=== PATIENT | female | born 1950 | race Caucasian/White ===

== ENCOUNTER 2021-06-07 07:00 | Inpatient (IN) ==
--- NOTE | 2021-05-19 18:40 | History & Physical Report ---
Date of Service May 19, 2021 date of surgery: 06/07/21 Procedure: Left Total Knee Arthroplasty Surgeon: Miguelito Mae Assessment & Plan (1) Arthritis of knee, left: Plan: Risks and benefits of procedure discussed in detail today, patient would like to proceed with a left total knee replacement at [facility] as scheduled. will obtain medical clearance from Dr Bone prior to surgery as well as obtain PATs at [facility]. Will place on ASA 81mg po bid x 1 month post op, f/u 2 weeks post op for routine post-operative care and x-ray, sooner if having any problems. will make arrangements for HHPT at the time of discharge. At this point in time, has failed conservative measures and would like to proceed with surgical intervention. The risks and benefits have been discussed including, but not limited to, risk of infection, nerve injury, stiffness, loss of motion, failure to improve, etc. Reasonable outcomes and options of treatment were discussed. An explanation of appropriate alternatives to the procedure that may be advantageous were dis cussed and their risks and benefits, as well as the risks and benefits of not proceeding with treatment. I offered to answer any additional inquiries concerning the treatment involved. All the patient's questions were answered. The patient is agreeable, understanding of the treatment plan and alternatives, and wishes to proceed with the treatment plan. History of Present Illness Chief Complaint: left knee pain Primary Care Provider: NO PCP Trinh is a 71 year old female who complains of left knee pain, presents for pre-op evaluation prior to a left total knee replacement by Dr Mae at [facility]. she complains of pain, decreased range of motion, instability and stiffness in her left knee. Currently the patient states that the symptoms are moderate- severe and is described as aching, sharp and throbbing. Her symptoms are aggravated by ascending stairs, daily activities, first steps while awake walking. Prior NSAIDs include IBU and Aleve. Other prior treatments include cortisone injection as well as coolief procedure without relief. Allergies Allergy/AdvReac Type Severity Reaction Status Date / Time No Known Allergies Allergy Verified 12/26/20 12:27 Home Medications Medication Instructions Recorded Confirmed Type atorvastatin 20 mg tablet 20 mg PO QPM 12/26/20 12/26/20 History calcium carb-ergocalciferol (vit 2 tab PO QPM 12/26/20 12/26/20 History D2) 600 mg calcium-200 unit tablet losartan 25 mg tablet 25 mg PO QPM 12/26/20 12/26/20 History Past Med/Surg History Medical History HYLTON (dyspnea on exertion) History of bleeding ulcers No recent issues Hyperlipidemia Hypertension Moderate aortic stenosis Per 08/30/20 ECHO Calcified aortic valve with moderate aortic stenosis. SHEY 1.3 cm and mean gradient is 28 mmHg. 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 Beliefs That Will Affect Care: None Current Living Situation: Spouse Feels Safe at Home: Yes Assistive Devices: Glasses Review of Systems Review of Systems: All systems reviewed & are unremarkable except as noted in HPI & below Constitutional: no fever, no chills and no sweats Respiratory: no cough and no dyspnea Cardiovascular: no chest pain, no dyspnea and no orthopnea Gastrointestinal: no abdominal pain, no nausea and no vomiting Musculoskeletal: as per Subjective / HPI Physical Exam Physical Exam: HT: 5ft 4in WT: 107.4kg Constitutional: WD/WN, vitals as above no acute distress Respiratory: normal respiratory effort, lungs clear to auscultation no respiratory distress, no labored breathing and does not use accessory muscles Cardiovascular: RRR, no murmur, no edema Gastrointestinal (Abdomen): normal bowel sounds, soft, nontender, no hepatosplenomegaly Musculoskeletal: Knee: + knee abnormal to inspection (LEFT KNEE- ), + effusion (+1 effusion), + limited ROM of knee (ROM 0/3/110), + knee ROM with crepitation, + joint line tenderness (medial joint line) and + Harmony's sign positive; no deformity, no skin erythema, no ecchymosis, no valgus laxity, no varus laxity, anterior drawer test negative, Romulo's sign negative and pivot shift test negative Results & Data Results & Data ([facility]) Diagnostic Findings Left Knee X-ray: left knee series confirms advanced degenerative changes to the left knee, greatest medial compartments and patellofemoral joint, showing joint space narrowing, osteophyte formation and subchondral sclerosis. no acute bony pathology noted.
--- NOTE | 2021-06-02 13:16 | Anesthesiology Consultation ---
Date of Service June 02, 2021 Assessment & Plan (1) Encounter for pre-operative examination: - awaiting PCP response to previous anesthesia optimization note regarding carotid imaging. - moderate aortic stenosis on 08/2020. 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 Patient vaccinated. Surgeon arranging preop COVID testing, scheduled 06/05/2021. Awaiting results. Chart Review Chart Review: Pending: Refer to Additional Notes / Consult section and Patient NOT seen in Pre Admission Testing History Surgery Operation Date: 06/07/21 10:30 Proposed Procedures p Left Total Knee Arthroplasty - Miguelito Mae DO Height/Weight Height: 5 ft 4 in Weight: 104.326 kg Allergies Allergy/AdvReac Type Severity Reaction Status Date / Time No Known Allergies Allergy Verified 06/02/21 10:50 Medications Home Medications Medication Instructions Recorded Confirmed Last Taken atorvastatin 20 mg tablet 20 mg PO QPM 12/26/20 06/02/21 Unknown calcium carb-ergocalciferol (vit 2 tab PO QPM 12/26/20 06/02/21 Unknown D2) 600 mg calcium-200 unit tablet losartan 25 mg tablet 25 mg PO QPM 12/26/20 06/02/21 Unknown acetaminophen 500 mg tablet 500 mg PO Q6H PRN 06/02/21 06/02/21 Unknown ascorbic acid (vitamin C) 500 mg 500 mg PO QPM 06/02/21 06/02/21 Unknown tablet (Vitamin C) Past Medical History Medical History HYLTON (dyspnea on exertion) History of bleeding ulcers No recent issues History of COVID-19 DX'D END 03/2021 MICHELL JAMISON-BODY ACHES, FATIGUE, LOSS TASTE AND SMELL, SOB-RECOVERED AT HOME-SYMPTOMS RESOLVED Hyperlipidemia Hypertension Moderate aortic stenosis Per 08/30/20 ECHO Calcified aortic valve with moderate aortic stenosis. SHEY 1.3 cm and mean gradient is 28 mmHg. AV peak velocity 2.6 m/s Osteoarthritis Past Family History Family History Sister FHx: lung cancer Mother FHx: breast cancer Other No family history of adverse response to anesthesia Past Surgical History Surgical History History of bunionectomy of left great toe History of cholecystectomy History of colonoscopy History of esophagogastroduodenoscopy (EGD) S/P SEVEN-BSO Social History Smoking Status: Never smoker Do You Dip or Chew Tobacco: No Hx Alcohol Use: Yes Alcohol type: hard liquor alcohol intake frequency: holidays/special occasions only Hx Substance Use: No substance use type: does not use Testing Laboratory Results 05/26/2021 WBC: 4.9 H/H: 11/35 PLATELETS: 214 SODIUM: 139 POTASSIUM: 3.9 CHLORIDE: 109 CO2: 24 BUN: 17 CREATININE: 0.8 GLUCOSE: 92 PT: 14 PTT: 30 INR: 1.1 UA: yellow, clear, negative Electrocardiogram Date: 12/28/20 Sinus bradycardia, rate 56 bpm Chest X-Ray Date: 06/16/20 Stable moderate hiatal hernia Stable moderate cardiomegaly Stable hyperexpansion of lungs No effusion, consolidation or pneumothorax Echocardiogram Date: 08/30/20 EF 55-60% LV wall thickness increased, borderline LVH Mild tricuspid regurgitation Moderate aortic stenosis: valve area 1.3 cm2, mean gradient 28 mmHg Stress Test Date: 10/25/20 pharmacologic MPHR 54% Negative EF 73% Other Testing Carotid duplex 09/20/2016 No evidence of hemodynamically significant stenosis
[~2021-06-07 07:00] MED LIST: ACETAMINOPHEN 500 MG TAB PO SCH; CeleBREX 200 MG CAP PO SCH; FAMOTIDINE 20 MG TAB PO SCH; GABAPENTIN 300 MG CAP PO SCH; LR 15ML/HR IV SCH; METOCLOPRAMIDE HCL 10 MG TABLET PO SCH; ROPIVACAINE 0.5% HCL/PF 150 MG, BUPIVACAINE 0.75% MPF 20 ML, EPINEPHrine 30MG/30ML (OR ... INSTIL SCH; ceFAZolin 2000MG 2,000 MG/15 ML SYR IV SCH; oxyCODONE HCL 10 MG TABCR (OxyCONTIN) PO SCH
[2021-06-07] MEDS ORDERED: fentaNYL citrate 100 MCG/2 ML VIAL ONE (07:35)
[2021-06-07] MEDS ORDERED: MIDAZOLAM HCL 1 MG/ML 2ML VIAL ONE ×2 (07:35→07:36)
[2021-06-07] MEDS ORDERED: BUPIVACAINE 0.5 % 5 MG/1 ML PF 10ML VIAL ONE (07:38)
[2021-06-07] MEDS ORDERED: DEXAMETHASONE SOD INJ 4 MG/ML VIAL ONE (07:38)
[2021-06-07] MEDS ORDERED: EPINEPHrine INJ 1 MG/ML AMP ONE (07:38)
[2021-06-07] MEDS ORDERED: BUPIVACAINE 0.25% 30 ML VIAL ONE (07:39)
--- NOTE | 2021-06-07 08:33 | History & Physical Bridge Note ---
Date of Service June 07, 2021 History & Physical Bridge Note I have examined the patient, reviewed the History & Physical and in the interval since the performance of the History & Physical I have noted the following changes of clinical significance: no changes noted
[2021-06-07] MEDS ORDERED: TRANEXAMIC ACID / 0.7% NACL 1,000 MG/100 ML BAG IV STA ×2 (08:38→08:39)
[2021-06-07] MEDS ORDERED: TRANEXAMIC ACID / 0.7% NACL 1000MG/100ML BAG IV ONE (08:42)
[2021-06-07] MEDS ORDERED: ORTHO JOINT ANESTHETIC ONE (08:57)
[2021-06-07] MEDS ORDERED: ONDANSETRON INJ 2 MG/ML 2 ML VIAL IV PRN ×2 (09:49→12:53)
[2021-06-07] MEDS ORDERED: ATROPINE SULFATE 0.1 MG/ML 10ML SYR IV PRN (09:49)
[2021-06-07] MEDS ORDERED: ePHEDrine sulfate 50 MG/ML AMP IV PRN (09:49)
[2021-06-07] MEDS ORDERED: fentaNYL citrate 100 MCG/2 ML VIAL IV PRN (09:49)
[2021-06-07] MEDS ORDERED: PROPOFOL IV EMULSION 10 MG/ML 20 ML VIAL IV ONE (10:04)
[2021-06-07] MEDS ORDERED: LIDOCAINE 2% 2 ML VIAL/AMP(20MG/ML) INFIL ONE (10:04)
[2021-06-07] MEDS ORDERED: ONDANSETRON INJ 2 MG/ML 2 ML VIAL ONE (10:04)
--- NOTE | 2021-06-07 10:43 | Operative Report ---
Post Operative Report Pre & Post Diagnosis Operation Date: 06/07/21 09:20 Pre-Op Diagnosis: Arthritis of Left knee Post-Op Diagnosis: Arthritis of Left knee I identified the patient and participated in the time-out.: Yes Procedure Operation Date: 06/07/21 09:20 Actual Procedures p Left Total Knee Arthroplasty(Left) utilizing [employer] 2 patient matched total knee arthroplasty size femur 4 left tibia 3 left 9 mm polytwenty 9 oval patella Miguelito Mae DO Surgeon Miguelito Mae DO Launch Engineer Elvin ERICKSON Estimated Blood Loss 5 Findings Consistent with Post-Op Diagnosis Patient presents with severe end-stage DJD left knee varus alignment subchondral sclerosis marginal osteophytes eburnated [id number] with moderate to large effusion Specimens Bone and cartilage Drains Medium bore Hemovac Anesthesia Type MAC Spinal Regional Complications none Disposition Accompanied Patient To Recovery: No Disposition: Recovery Room Indications Patient presents with severe end-stage DJD left knee no response to conservative management clinic physical therapy anti-inflammatories relative rest activity modification corticosteroid injection viscosupplementation the above intraoperative findings were noted Description of Procedure After proper prepping and draping of the left lower extremity anterior midline incision was made over the region of the extensor extensor mechanism after meticulous hemostasis was obtained and maintained in subcutaneous tissues a medial parapatellar incision was made The patella was subluxed lateralward the medial lateral gutter were cleaned from any hypertrophic synovitis and scar tissue of the distal femoral block was placed and the distal femoral osteotomy cut was made subsequently the chamfers anterior and posterior osteotomy cuts were made utilizing the 4-in-1 block the tibia was subsequently subluxed anteriorward medial and ateral meniscal remnants were excised in their entirety remnants of the anterior and posterior cruciate ligaments were excised in their entirety excellent exposure of the proximal tibia was obtained the tibial osteotomy guide was placed on the proximal tibial osteotomy cut was made once again the knee was irrigated with copious amounts of sterile saline solution the patella was subsequently everted lateralward thickened scar tissue around the patella was removed the patella was subsequently cut utilizing a freehand technique and was drilled prepared for final preparation and placement of patella socially flexion-extension gaps were checked and the equal and symmetric trials were placed to the appropriate femoral and tibial trials with poly-spacer being placed for equal flexion and extension gaps and full range of motion including extension to 0 and flexion to 140 the trial components after having been taken to recovery range of motion was subsequently removed meticulous hemostasis was obtained and maintained subsequently a knee block injection of joint cocktail including ropivacaine 0.5% 150 mg. Bupivacaine 0.5% epinephrine 1-200,030 mL's toradol 30 mg dexamethasone 4 mg ketamine 10 mg clonidine 100 micrograms normal saline solution 30 mg was infiltrated into the soft tissues of the posterior knee medial lateral gutters and periosteal synovium special attention was paid to protect neurovascular structures at all times subsequently trial components having been removed the knee was irrigated with sterile saline solution. debris was removed the proximal tibia was subsequently prepared and was made ready for the placement of the tibial component tibial component was also cemented and tamped into position the femoral component was subsequently placed and cemented in the position the patellar component was subsequently cemented in position because hemostasis once again obtained and maintained wound having been thoroughly irrigated with debridement and debridement lavage was performed as well as a medial parapatellar incision closed with #1 Vicryl in interrupted fashion subcutaneous was closed with #2 Vicryl skin was closed with skin clips. PA-C was necessary for prepping and drapping as well as wound closure of deep fascia Sub cutaneous tissue and skin and was necessary for the case. A sterile compressive dressing was placed patient was taken to recovery in stable condition of report dictated by Tu I attest to the content of the Intraoperative Record and any orders documented therein. Any exceptions are noted below.Due to the complex nature of the procedure, the entire surgery was performed with the operational assistance of DRE Pastor The senior court office assistant, under direct supervision, was involved in the actual performance of all aspects of the surgical procedure including hemostasis, tissue retraction and incision, instrument management, patient positioning, and wound closure. I attest to the content of the Intraoperative Record and any orders documented therein. Any exceptions are noted below.
--- NOTE | 2021-06-07 11:46 | XRay Report ---
XR knee LT 1 or 2V routine CLINICAL HISTORY: Surgical Post Op. Status post total knee replacement COMPARISON STUDY: No previous studies for comparison. TECHNIQUE: 2 left knee views FINDINGS: The patient is status post total knee replacement. The prosthetic components are in anatomi c alignment with no acute abnormality seen. Air is present within the soft tissues from the procedure . Surgical drains are seen within the soft tissues anteriorly. IMPRESSION: 1. Status post total knee replacement ACT 112: Negative or not required by law. Electronically signed by: Connor Richards M.D. 06/07/2021 11:44 AM
--- NOTE | 2021-06-07 12:25 | Anesthesiology Progress Note ---
Date of Service June 07, 2021 Anesthesia Post Procedure Vital Signs Vital Signs: Temp Pulse Pulse Resp BP Pulse Ox 06/07/21 12:10 54 L 13 127/63 92 06/07/21 11:55 36.1 C L 62 15 142/72 H 92 06/07/21 11:45 69 18 152/71 H 93 06/07/21 11:35 60 12 138/66 98 06/07/21 11:25 68 16 131/61 98 06/07/21 11:15 36.1 C L 69 15 134/64 97 06/07/21 07:42 36.9 C 61 18 179/84 H 96 Pain Intensity Left Knee: Pain Intensity: 0 Transfer of Care Handoff Completed per policy Notes Mental Status: alert / awake / arousable Patient Amnestic to Procedure: Yes Nausea / Vomiting: adequately controlled Pain: adequately controlled Airway Patency, RR, SpO2: stable & adequate BP & HR: stable & adequate Hydration State: stable & adequate Neuraxial Anesthesia: was administered and sensory block is resolving Anesthetic Complications: no major complications apparent and Pt Satisfied with anesthetic care
[2021-06-07] MEDS ORDERED: PHENYLEPHRINE HCL 10 MG/ML VIAL ONE (12:32)
[2021-06-07] MEDS ORDERED: MAGNESIUM HYDROXIDE SUSP 30 ML UDC PO PRN (12:53)
[2021-06-07] MEDS ORDERED: diphenhydrAMINE Capsule 25 MG CAP PO PRN (12:53)
[2021-06-07] MEDS ORDERED: oxyCODONE HCL IR 5 MG TAB (IMMEDIATE RELEASE) PO PRN (12:53)
[2021-06-07] MEDS ORDERED: NALOXONE HCL 0.4 MG/1 ML VIAL/CARP IV PRN (12:53)
[2021-06-07] MEDS ORDERED: HYDROmorphone INJ 1 MG/ML SYRINGE IV PRN (12:53)
[2021-06-07] MEDS ORDERED: METOCLOPRAMIDE HCL INJ 5 MG/ML 2 ML VIAL IV PRN (12:53)
[2021-06-07] MEDS ORDERED: bisacodyL 10 MG SUPP PR PRN (12:53)
[2021-06-07] MEDS: SODIUM CHLORIDE 0.9% 1000ML 1,000 ML IV SCH ×2 (13:56→23:54)
[2021-06-07] MEDS: ACETAMINOPHEN 500 MG TAB PO SCH ×2 (14:09→21:05)
[2021-06-07] MEDS: KETOROLAC TROMETHAMINE 15 MG/ML VIAL IV SCH ×2 (14:10→19:34)
[2021-06-07] MEDS: ceFAZolin 2000MG 2,000 MG/15 ML SYR IV SCH (17:11)
[2021-06-07] MEDS ORDERED: SENNA 8.6 MG TAB PO SCH (21:00)
[2021-06-07] MEDS ORDERED: ASCORBIC ACID 500 MG TAB PO SCH (21:00)
[2021-06-07] MEDS ORDERED: LOSARTAN POTASSIUM 25 MG TAB PO SCH (21:00)
[2021-06-07] MEDS ORDERED: ATORVASTATIN 20 MG TAB PO SCH (21:00)
[2021-06-07] MEDS ORDERED: CALCIUM 600MG + VIT D 400 IU TAB PO SCH (21:00)
[2021-06-07] MEDS: DOCUSATE SODIUM 100 MG CAP PO SCH (21:05)
[2021-06-07] MEDS: ASPIRIN 81 MG ECTAB PO SCH (21:06)
[2021-06-08] MEDS: KETOROLAC TROMETHAMINE 15 MG/ML VIAL IV SCH ×2 (01:12→08:57)
[2021-06-08] MEDS: ceFAZolin 2000MG 2,000 MG/15 ML SYR IV SCH (01:13)
[2021-06-08] MEDS: ACETAMINOPHEN 500 MG TAB PO SCH ×2 (05:22→13:50)
[2021-06-08 07:46] LABS: Hematocrit (blood only) 32.2 % (37-47); Hemoglobin 10.6 g/dL (12.0-16.0); Mean Corpuscular Hgb Conc 32.9 g/dL (32-36); Mean Corpuscular Volume 82.1 fL (80-100); Platelet Count 224 K/uL (130-400); RDW Coefficient of Variation 15.9 % (11.5-14.5); Red Blood Count 3.92 M/uL (4.2-5.4); White Blood Count 11.36 K/uL (4.8-10.8)
--- NOTE | 2021-06-08 08:11 | Orthopedic Progress Note ---
Date of Service June 08, 2021 Assessment & Plan (1) Arthritis of knee, left: Plan: POD 1 Status post left total knee arthroplasty PT/OT protocols. Weightbearing as tolerated. VT prophylaxis-aspirin p.o. twice daily, SCDs, MATI barros Pain management as written. Labs pending. DC planning-patient is planning for home health services upon discharge. Plan for discharge later today. Admission and Anticipated Discharge Date Admission Date: June 07, 2021 Subjective POD 1 Pt lying in bed awake, alert. No complaints. Denies SOB,CP,LH. Pain controlled. Physical Exam Physical Exam: Dressings are clean, dry, and intact. Calves are soft and nontender. Neurovascular intact. Toes are mobile.. He has good dorsiflexion plantarflexion of the left foot. Minimal drainage from the Hemovac. Results & Data ([facility]) Vital Signs (Past 12 Hours) Vital Signs Temp Pulse Resp BP Pulse Ox 06/08/21 07:42 36.6 C 66 16 129/70 94 06/08/21 03:15 36.4 C L 60 18 150/65 H 94 06/07/21 22:36 36.7 C 57 L 18 155/70 H 93
[2021-06-08 08:22] LABS: Calcium 8.9 mg/dl (8.5-10.1); Creatinine Clr Calc Pharmacy 72.7 ml/min; Est GFR (Non-African American) 69.9 ml/min; Potassium 4.4 mmol/L (3.5-5.1)
[2021-06-08] MEDS: ASPIRIN 81 MG ECTAB PO SCH (08:51)
[2021-06-08] MEDS: DOCUSATE SODIUM 100 MG CAP PO SCH (08:51)
[2021-06-08] MEDS ORDERED: MULTIVITAMIN TAB PO SCH (09:00)
[2021-06-08] MEDS ORDERED: CeleBREX 200 MG CAP PO SCH (09:00)
--- NOTE | 2021-06-09 12:20 | Discharge Summary ---
Date of Service date of surgery: 06/07/21 date of discharge: 06/08/21 Admission HPI Per Admitting Provider Trinh is a 71 year old female who complains of left knee pain, presents for pre- op evaluation prior to a left total knee replacement by Dr Mae at [facility]. she complains of pain, decreased range of motion, instability and stiffness in her left knee. Currently the patient states that the symptoms are moderate-severe and is described as aching, sharp and throbbing. Her symptoms are aggravated by ascending stairs, daily activities, first steps while awake walking. Prior NSAIDs include IBU and Aleve. Other prior treatments include cortisone injection as well as coolief procedure without relief. Principal Diagnosis left knee osteoarthritis Discharge Exam Musculoskeletal NVDI, calf SNT, negative nieves sign. DP palpable, able to wiggle toes/ankle movement without difficulty. dressing clean dry and intact. expected post- operative bruising noted. Discharge Data Allergies Allergy/AdvReac Type Severity Reaction Status Date / Time No Known Allergies Allergy Verified 06/07/21 07:20 Procedures Performed Operation Date: 06/07/21 09:20 Actual Procedures p Left Total Knee Arthroplasty(Left) - Miguelito Mae DO Ordered Studies 06/07/21 05:00 US - OR guided needle placemen Routine Hospital Course (1) Arthritis of knee, left: POD 1 Status post left total knee arthroplasty PT/OT protocols. Weightbearing as tolerated. VT prophylaxis-aspirin p.o. twice daily, SCDs, MATI hose Pain management as written. Labs pending. DC planning-patient is planning for home health services upon discharge. Plan for discharge later today. Total Time Total Time Spent Total Time Spent (In Minutes): 20 Discharge Plan Discharge Items Patient Disposition: Home - Home Health Services Reason For Visit: Left Knee Osteoarthritis Discharge Diagnosis: left total knee replacement Activity: Per Instructions section Lifting: Wait until after follow-up appointment Weightbearing Comment: WBAT with walker Non-emergency contact: Surgeon Call non-emergency contact if: you have any medication questions, your pain is not controlled, your pain is worsening, your temperature is above 101, your wound has increased redness, your wound has increased drainage and your wound pain has increased Follow-up/Referrals: Miguelito Mae DO [Surgeon] - 06/19/21 10:20 am (Follow up in 14 days from the day of surgery for your first check up. ) PCP,NO [Primary Care Provider] - Diet: Regular Addtl Attending Provider Instructions: ACTIVITY RECOMMENDATIONS: SELF CARE INSTRUCTIONS AFTER TOTAL KNEE REPLACEMENT A. You may need to continue a physical therapy program after discharge from the hospital. There are several options available to you. Your doctor will assist you in selecting the best one for you. 1. An out-patient facility 2 to 3 times a week for therapy or home therapy. 2. Continue working on all exercises taught to you in the hospital. Your goals should be to increase bending of your knee to 90 degrees and beyond and to fully straighten your knee. B. You may progress at your own pace from walking with a walker or crutches to a cane; then to no assistive devices. C. Make walking a part of your daily routine. Be up as much as comfortable with rest periods throughout the day. Rest with leg elevation is very important. Use the ice wrap frequently for the first 3-4 weeks. D. There are no restrictions on activities. You may ride in a car, shop, participate in imaging tech and all social activities. E. Wear the long elastic stockings (MATI hose) 20 hours a day for 2 weeks after surgery. They can be removed several times a day for laundering and for a bath. F. You may shower, no tub baths until cleared by your doctor. SPECIAL CARE INSTRUCTIONS: VERY IMPORTANT TO READ AND REVIEW A. There are a few signs you need to watch for after you are home. Call [facility] if you notice any of the followin. Increased severe knee pain. Some pain is expected especially when you exercise. 2. Increased swelling in your leg or knee; pain or swelling of the calf muscle in either lower leg. 3. Any fluid drainage from the incision. 4. Shortness of breath or chest pain. B. Please call [facility] at if you have any concerns or questions about your operation or recovery. The doctor or his nurse will return your call promptly. C. You must take antibiotics before dental work, bladder, bowel or other surgery. Your doctor will provide you with a permanent care to carry describing this precaution. IMPORTANT: * REMEMBER TO TAKE ASPIRIN, 81 MG, TWICE DAILY FOR 4 WEEKS UNLESS OTHERWISE DIRECTED. THIS IS YOUR BLOOD THINNER. * HIGH RISK PATIENTS MAY BE PRESCRIBED A STRONGER BLOOD THINNER. THIS WILL BE PROVIDED AT DISCHARGE. * CALL IF INCREASED PAIN, REDNESS, DRAINAGE OR FEVER GREATER THAT 101. * WEAR MATI HOSE 20 HOURS PER DAY FOR 2 WEEKS. * DERMABOND Prineo- This is a mesh tape dressing that is covered with glue. It should remain in place until the incision is properly healed, usually 10-14 days. This dressing is designed to naturally slough off. You may trim the excess mesh tape as it peels off. Incision may be briefly wet in a shower. Dry immediately by blotting with a clean, dry towel. Do not bath or swim until instructed by your doctor. Do not scratch, rub, or pick at the dressing. Do not apply any topical ointments or lotions until dressing is completely removed and/or instructed by your doctor. There may be a small piece of suture material at one end of your incision. Do not pull or trim this. If it is bothersome or catching on clothing, you may cover it with a band-aid. IF INCISION IS LEAKING THROUGH DRESSING, CALL THE OFFICE . FOLLOW UP VISIT: If appointment is not already scheduled: Please call [facility] to make a follow-up appointment for 2 weeks after your surgery at . Pending Studies at Discharge: No Stand-Alone Forms: My [facility], Opioid Pain Management, Smoking Cessation Medications and DC Order Prescriptions: New celecoxib [Celebrex] 200 mg Capsule 200 mg PO BID 14 Days Qty: 28 RF: 0 aspirin 81 mg Tablet,Delayed Release (Dr/Ec) 81 mg PO BID 30 Days Qty: 60 RF: 0 acetaminophen [Tylenol Extra Strength] 500 mg Tablet 1,000 mg PO Q8 14 Days Qty: 84 RF: 0 polyethylene glycol 3350 [Miralax] 17 gram powder in packet 17 g PO DAILY PRN (Reason: constipation) Qty: 5 RF: 0 cefadroxil 500 mg capsule 500 mg PO BID Qty: 28 RF: 1 oxycodone 5 mg Tablet 5 mg PO Q4H MDD 6 PRN (Reason: pain) Qty: 30 RF: 0 Continued atorvastatin 20 mg Tablet 20 mg PO QPM RF: 0 losartan 25 mg Tablet 25 mg PO QPM RF: 0 calcium carbonate-vitamin D2 600 mg calcium- 200 unit Tablet 2 tab PO QPM RF: 0 ascorbic acid (vitamin C) [Vitamin C] 500 mg Tablet 500 mg PO QPM RF: 0 Discontinued acetaminophen [Tylenol Ex Str Rapid Release] 500 mg Tablet 500 mg PO Q6H PRN (Reason: Pain) RF: 0 Discharge Orders: Discharge Order (Routine); Ordered 06/08/21 Ordered By: Chad Maddox/Other Patient Handouts: DVT Post Op Prevention, Knee Replacement Total Dc Admission Data Admit Date/Time: 06/07/21 11:17 Attending Provider: Miguelito Mae Admit Provider: Miguelito Mae Primary Care Provider: PCP,NO Other Providers: [facility],Home Healthcare Other Interventions: Discharge Summary Assessment (RN) Last Done: 06/08/21 13:28
== END 2021-06-08 16:06 | disposition home health service (06) | DRG 470 ==
LOC: ASU 07:00 → PACUINP 07:00 → OBSVTOIN 11:17 → 3W 13:36
DX: I35.0 Nonrheumatic aortic (valve) stenosis; M17.12 Unilateral primary osteoarthritis, left knee; Z86.16 Personal history of COVID-19; Z80.1 Family history of malignant neoplasm of trachea, bronchus and lung; I10 Essential (primary) hypertension; E78.5 Hyperlipidemia, unspecified